=== PATIENT | male | born 1950 | race Caucasian/White ===

== ENCOUNTER → 2016-07-01 | Outpatient (CLI) | payer MEDICARE ==
[~2016-07-01] MED LIST: BUPR150T73 PO; CALC1CAP8 PO; CAYE450C PO; DIPH25CA61 PO; LEVO125T5 PO; MULT-257 PO; SIMV40TA3 PO; TRAM100T2 PO; TRAM50TA2 PO
== END | disposition home or self-care (01) ==
LOC: STAR 08:07
PROVIDERS: ATTEND Urology
DX: Z01.818 Encounter for other preprocedural examination (principal); N43.3 Hydrocele, unspecified
CPT/HCPCS: 81003; 87086; 93005

== ENCOUNTER 2016-07-08 10:46 | Day surgery (SDC) | payer MEDICARE ==
[~2016-07-08] VITALS: Ht 175.3 cm; Wt 94.0 kg
[2016-07-08 11:44] VITALS: BP 166/85
[2016-07-08] MEDS ORDERED: LIDOCAINE 1%, 2ML ONE (12:03)
[2016-07-08] MEDS ORDERED: MIDAZOLAM 1 MG/ML, 2ML ONE (12:36)
[2016-07-08] MEDS ORDERED: FENTANYL PF 250 MCG/5ML ONE (12:36)
[2016-07-08] MEDS ORDERED: BUPIVACAINE/PF-EPI 0.25% 1:200K ONE (13:45)
[2016-07-08] MEDS ORDERED: ONDANSETRON 2MG/ML, 2ML IVPush PRN (14:00)
[2016-07-08] MEDS ORDERED: FENTANYL PF 100 MCG/2ML IV PRN (14:00)
[2016-07-08] MEDS ORDERED: METOCLOPRAMIDE 5 MG/ML, 2ML IV PRN (14:00)
[2016-07-08] MEDS ORDERED: OXYcodone 5 MG/5 ML ORAL.SOL UDC PO PRN (14:00)
[2016-07-08] MEDS ORDERED: ACETAMINOPHEN 325 MG TABLET PO PRN (14:00)
[2016-07-08] MEDS ORDERED: PROMETHAZINE 25 MG/ML, 1ML IV PRN (14:00)
[2016-07-08] MEDS ORDERED: HYDROmorphone 1 MG/ML, 1ML IV PRN (14:00)
[2016-07-08] MEDS ORDERED: LABETALOL 5MG/ML, 20ML IV PRN (14:00)
[2016-07-08] MEDS ORDERED: MEPERIDINE/PF 25MG/0.5ML IVPush PRN (14:00)
[2016-07-08] MEDS ORDERED: ROCURONIUM 10 MG/ML ONE (14:26)
[2016-07-08] MEDS ORDERED: GLYCOPYRROLATE 0.2MG/1ML ONE (14:26)
[2016-07-08] MEDS ORDERED: NEOSTIGMINE 1 MG/ML, 10ML ONE (14:26)
[2016-07-08] MEDS ORDERED: CEFAZOLIN 1,000 MG ONE (14:26)
[2016-07-08] MEDS ORDERED: PROPOFOL 10 MG/ML, 20ML ONE (14:26)
[2016-07-08] MEDS ORDERED: BUPIVACAINE/PF 0.25% ONE (14:47)
[2016-07-08] MEDS ORDERED: DOXYCYCLINE 100 MG ONE (15:35)
[2016-07-08] MEDS ORDERED: NEOSPORIN OINT, 15GM ONE (15:43)
[2016-07-08] MEDS ORDERED: hydrALAzine 20 MG/ML, 1ML ONE (16:10)
[2016-07-08] MEDS ORDERED: OXYcodone 5 MG/5 ML ORAL.SOL UDC ONE (16:10)
[2016-07-08] MEDS: hydrALAzine 20 MG/ML, 1ML IV PRN ×2 (16:12→16:46)
[2016-07-08] MEDS ORDERED: FENTANYL PF 100 MCG/2ML ONE (16:59)
== END 2016-07-08 18:02 | disposition home or self-care (01) ==
LOC: OUT 10:46
PROVIDERS: ATTEND Urology
DX: N43.0 Encysted hydrocele (principal); N43.42 Spermatocele of epididymis, multiple; Z88.2 Allergy status to sulfonamides; E78.5 Hyperlipidemia, unspecified; Z87.442 Personal history of urinary calculi; Z87.891 Personal history of nicotine dependence; Z82.3 Family history of stroke; Z80.3 Family history of malignant neoplasm of breast; E01.8 Other iodine-deficiency related thyroid disorders and allied conditions
CPT/HCPCS: 54840; 55040; 88302; 88304; J0360; J0690; J2250; J2704; J2710; J3010; J3490